=== PATIENT | female | born 1980 | race Two or more races ===

== ENCOUNTER 2019-01-11 02:29 | Emergency (ER) | payer SELFPAY ==
[~2019-01-11] VITALS: Ht 149.9 cm; Wt 54.0 kg
[2019-01-11] MEDS: ALPRAZolam 0.25 MG TAB PO ONE (02:56)
[2019-01-11] MEDS: BACLOFEN 10 MG TAB PO ONE (05:48)
[2019-01-11] MEDS: methylPREDNISolone SOD SUCC 125 MG/2 ML VL IM ONE (05:48)
[2019-01-11 06:15] VITALS: BP 124/84
== END 2019-01-11 06:21 | disposition home or self-care (01) ==
LOC: ER 02:32
DX: M62.838 Other muscle spasm (principal); M54.2 Cervicalgia; R20.2 Paresthesia of skin; G44.209 Tension-type headache, unspecified, not intractable
CPT/HCPCS: 96372; 99283; J2930

== ENCOUNTER 2024-11-19 19:16 | Emergency (ER) | payer MEDICAID ==
[~2024-11-19] VITALS: Ht 149.9 cm; Wt 52.5 kg
[2024-11-19 19:44] VITALS: TEMP 99.3
--- NOTE | 2024-11-19 21:32 | DVH ---
EXAM: XY CHEST TWO VIEWS ROUTINE CLINICAL HISTORY: CHEST WALL PAIN TECHNIQUE: Frontal and lateral views of the chest WID: COMPARISON: None FINDINGS: Lines and tubes: None Chest: The heart size and pulmonary vasculature is within normal limits. No pleural effusion, pneumothorax, or consolidation. The osseous structures are grossly intact. IMPRESSION: No acute cardiopulmonary abnormality.
--- NOTE | 2024-11-19 21:33 | DVH ---
EXAM: XY CERVICAL SPINE 3V INDICATION: NECK PAIN COMPARISON: None TECHNIQUE: 4 views of the cervical spine were obtained. Findings: There is no evidence of an acute fracture, spondylolysis, or spondylolisthesis. The vertebral body heights and disc spaces are well-maintained. Straightening of the cervical lordos is. No blastic or lytic lesions are appreciated. No radiopaque foreign bodies. No superficial soft tissue abnormalities. Impression: 1. No acute osseous abnormality. 2. Straightening of the cervical lordosis which may be positional versus muscle spasm.
[2024-11-19] MEDS ORDERED: CYCL-837 PO (23:29)
[2024-11-19] MEDS ORDERED: ACET500T58 PO (23:29)
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
[2024-11-19 23:35] VITALS: BP 152/98; PULSE 76; RESP 18; O2SAT 100
== END 2024-11-20 | disposition home or self-care (01) ==
LOC: ER 19:16
DX: S16.1XXA Strain of muscle, fascia and tendon at neck level, initial encounter (principal); S20.219A Contusion of unspecified front wall of thorax, initial encounter; V43.52XA Car driver injured in collision with other type car in traffic accident, initial encounter; Y93.89 Activity, other specified; Y92.410 Unspecified street and highway as the place of occurrence of the external cause; Y99.8 Other external cause status
CPT/HCPCS: 71046; 72040

== ENCOUNTER 2025-09-23 22:39 | Emergency (ER) | payer MEDICAID ==
[~2025-09-23] VITALS: Ht 147.3 cm; Wt 60.0 kg
[~2025-09-23 22:39] MED LIST: ACET500T58 PO; CYCL-837 PO
--- NOTE | 2025-09-23 23:56 | ED.PDOC ---
History of Present Illness HPI Comments 44-year-old female who presents with chief complaint of headache. Patient endorses on sudden, unprovoked, and atraumatic onset of intermittent, pounding pain, this morning, that woke her from her sleep and has been, progressively, worsening since. Pain is a 10/10 in severity and having temporary relief with [id number] ibuprofen medication use. She reports associated blurry vision, palpitations, and nausea. No endorsed recent prior ailments, sick contacts, injuries, or pertinent history. Patient denies having any vision or speech changes, facial droop, numbness, tingling, weakness, vomiting or further acute symptoms. REVIEW OF SYSTEMS: General: No fever, no chills, or fatigue HEENT: Blurry vision. No sore throat, no earache, no congestion, no neck pain. Cardiac: Palpitations. No chest pain. Lungs: No shortness of breath, no cough. GI: Nausea, no vomiting, no diarrhea, no constipation, no abdominal pain : No dysuria, frequency, or urgency. No hematuria. Musculoskeletal: No joint pain , no joint swelling, no extremity edema. Skin: No rash, no itching. Neuro: Headache, no dizziness, no weakness (And as sated in HPI) PHYSICAL EXAM: General: Awake, alert and oriented. No acute distress. Skin: Skin in warm, dry and intact. Appropriate color for ethnicity. HEENT: The head is normocephalic and atraumatic. Conjunctivae are clear without exudates or hemorrhage. EOM intact. PERRLA. Sclera is non-icteric. Eyelids are normal in appearance without swelling or lesions. Oral mucosa is pink and mo ist Neck: The neck is supple with normal range of motion. No JVD. Cardiac: Heart rate and rhythm are normal. No murmurs, gallops, or rubs are auscultated. Respiratory: No signs of respiratory distress. Lung sounds are clear in all lobes bilaterally without rales, rhonchi, or wheezes. Abdominal: Abdomen is soft, non-tender without distention, guarding or rigidity. Bowel sounds are present and normoactive in all four quadrants. Extremities: Upper and lower extremities are atraumatic in appearance without d eformity or edema. Neurological: The patient is awake, alert and oriented to person, place, and time with normal speech. Speech is clear. There is no facial asymmetry. Normal gait and strength. Patient is able to stand on each leg, individually, without issue. Psychiatric: Appropriate mood and affect. Good judgement and insight. Chief Complaint: Headache Time Seen by MD: 23:45 Primary Care Provider: UNKNOWN Reviewed Notes: Nurses Notes, Medications, Allergies Allergies: Coded Allergies: NO KNOWN ALLERGIES (Unverified , 01/11/19) Home Meds Active Scripts Ibuprofen (Ibuprofen) 600 Mg Tab, 1 TAB PO TID PRN, #15 TAB Prov:NOEMI MCFADDEN MD 09/24/25 Acetaminophen (Acetaminophen Er) 650 Mg Tab, 650 MG PO TIDPRN PRN, #15 TAB Prov:NOEMI MCFADDEN MD 09/24/25 Cyclobenzaprine Hcl (Cyclobenzaprine Hcl) 5 Mg Tab, 1 TAB PO QHSP, #14 TAB 0 Refills Prov:PRAKASH LEYVA 11/19/24 Acetaminophen (Acetaminophen) 500 Mg Tab, 500 MG PO Q4HPRN, #30 TAB 0 Refills Prov:PRAKASH LEYVA 11/19/24 Information Source: Patient Mode of Arrival: Ambulatory Severity: Moderate Timing: Hours Duration: Intermittent Prehospital treatment: Pain Meds Past Medical History PAST MEDICAL HISTORY: Denies 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 Was a procedure done?: No Differential Dx Considerations may include: Differential diagnoses considered include but are not limited to temporal arteritis, acute angle closure glaucoma, encephalitis, bacterial meningitis, carbon monoxide poisoning, posttraumatic headache, SAH, subdural hematoma, cervical artery dissection, venous sinus thrombosis, CVA, migraine headache, cluster headache, tension headache, TMJ disorder, frontal sinusitis, cervical spondylosis, intracranial mass, pituitary apoplexy. X-Ray, Labs, Meds, VS Vital Signs Date Time Temp Pulse Resp B/P (MAP) Pulse Ox O2 Delivery O2 Flow Rate FiO2 09/24/25 03:24 123/81 09/24/25 02:34 159/91 09/24/25 01:30 101 20 100 Room Air* 0 21 09/24/25 01:30 98.5 101 20 159/91 (113) 100 98.5 11/17/25 22:40 97.8 99 20 171/113 99 97.8 Lab Test 09/24/25 00:00 Range/Units White Blood Count 15.2 H 4.4-10.8 10^3/uL Red Blood Count 4.38 4.0-5.20 10^6/uL Hemoglobin 12.2 12.2-16.2 g/dL Hematocrit 36.4 36.0-46.0 % Mean Corpuscular Volume 83.1 80.0-100.0 fL Mean Corpuscular Hemoglobin 27.8 L 28.0-32.0 pg Mean Corpuscular Hemoglobin Concent 33.5 32.0-36.0 g/dL Red Cell Distribution Width 15.3 H 11.8-14.3 % Platelet Count 345 140-450 10^3/uL Mean Platelet Volume 6.9 6.9-10.8 fL Neutrophils (%) (Auto) 79.2 37.0-80.0 % Lymphocytes (%) (Auto) 14.7 10.0-50.0 % Monocytes (%) (Auto) 4.3 0.0-12.0 % Eosinophils (%) (Auto) 1.4 0.0-7.0 % Basophils (%) (Auto) 0.4 0.0-2.0 % Neutrophils # (Auto) 12.0 H 1.6-8.6 10 ^3/uL Lymphocytes # (Auto) 2.2 0.4-5.4 10 ^3/uL Monocytes # (Auto) 0.7 0-1.3 10 ^3/uL Eosinophils # (Auto) 0.2 0-0.8 10 ^3/uL Basophils # (Auto) 0.1 0-0.2 10 ^3/uL Nucleated Red Blood Cells 0.0 % Sodium Level 139 136-145 mmol/L Potassium Level 3.1 L 3.5-5.1 mmol/L Chloride Level 104 98-107 mmol/L Carbon Dioxide Level 23 20-31 mmol/L Anion Gap 12 5-15 Blood Urea Nitrogen 7 L 9-23 mg/dL Creatinine 0.69 0.550-1.02 mg/dL Glomerular Filtration Rate Calc 110 >90 mL/min BUN/Creatinine Ratio 10.1 10.0-20.0 Serum Glucose 109 H 74-106 mg/dL Calcium Level 9.4 8.7-10.4 mg/dL Magnesium Level 1.8 1.6-2.6 mg/dL Current Medications Medications (Trade) Dose Ordered Sig/Anton Route Start Time Stop Time Status Last Admin Sodium Chloride 1,000 ml @ 1,000 mls/hr Q1H ONCE IV 09/24/25 00:00 09/24/25 00:59 DC 09/24/25 02:35 Ketorolac Tromethamine (Toradol Injection) 30 mg ONCE ONCE IV 09/24/25 00:00 09/24/25 00:01 DC 09/24/25 02:34 Diphenhydramine HCl (Benadryl Injection) 25 mg ONCE ONCE IV 09/24/25 00:00 09/24/25 00:01 DC 09/24/25 02:34 Metoclopramide HCl (Reglan Injection) 10 mg ONCE ONCE IV 09/24/25 00:00 09/24/25 00:01 DC 09/24/25 02:34 Magnesium Sulfate/ Dextrose 100 ml @ 100 mls/hr Q1H IV 09/24/25 00:00 09/24/25 01:59 DC 09/24/25 02:35 Potassium Chloride (Klor-Con Tablet) 40 meq ONCE ONCE PO 09/24/25 01:45 09/24/25 01:46 DC 09/24/25 02:33 Clonidine HCl (Catapres Tablet) 0.2 mg ONCE ONCE PO 09/24/25 01:45 09/24/25 01:46 DC 09/24/25 02:34 Time of 1ST Reevaluation: 00:15 Reevaluation 1ST: Unchanged Patient Education/Counseling: Need For Follow Up Family Education/Counseling: No Family Present SEPSIS Sepsis Screen Date sepsis recognized/suspect: Sep 23, 2025 Time Sepsis recognized/suspect: 2242 Recent Procedure: No On Antibiotic Therapy: No Respiratory Rate >20: No Heart Rate >90: No Temp<36 C (96.8 F) or >38.3 C: No SBP <90 or MAP <65 mmHG: No New Acute Mental Status Change: No Is the patient on CPAP, BIPAP,: No Physician Orders Head Without Contrast (09/23/25 23:55) Vital Signs UPONDC (09/24/25 23:36) Notify Md If Abnormal Vs (09/24/25 02:10) Vital Signs Date Time Temp Pulse Resp B/P (MAP) Pulse Ox O2 Delivery O2 Flow Rate FiO2 09/24/25 03:24 123/81 09/24/25 02:34 159/91 09/24/25 01:30 101 20 100 Room Air* 0 21 09/24/25 01:30 98.5 101 20 159/91 (113) 100 98.5 09/23/25 22:40 97.8 99 20 171/113 99 97.8 Laboratory Tests Test 09/24/25 00:00 White Blood Count 15.2 10^3/uL (4.4-10.8) H Medications Medications Dose Ordered Sig/Anton Route Start Time Stop Time Status Last Admin Dose Admin Clonidine HCl 0.2 mg ONCE ONCE PO 09/24/25 01:45 09/24/25 01:46 DC 09/24/25 02:34 Diphenhydramine HCl 25 mg ONCE ONCE IV 09/24/25 00:00 09/24/25 00:01 DC 09/24/25 02:34 Ketorolac Tromethamine 30 mg ONCE ONCE IV 09/24/25 00:00 09/24/25 00:01 DC 09/24/25 02:34 Magnesium Sulfate/ Dextrose 100 ml @ 100 mls/hr Q1H IV 09/24/25 00:00 09/24/25 01:59 DC 09/24/25 02:35 Metoclopramide HCl 10 mg ONCE ONCE IV 09/24/25 00:00 09/24/25 00:01 DC 09/24/25 02:34 Potassium Chloride 40 meq ONCE ONCE PO 09/24/25 01:45 09/24/25 01:46 DC 09/24/25 02:33 Sodium Chloride 1,000 ml @ 1,000 mls/hr Q1H ONCE IV 09/24/25 00:00 09/24/25 00:59 DC 09/24/25 02:35 Departure 1 Departure Time of Disposition: 03:08 Impression: Primary Impression: Headache Disposition: 01 HOME / SELF CARE / HOMELESS Condition: Stable Additional Instructions: ED DISCHARGE INSTRUCTIONS Instructions: Please read all instructions provided in this packet carefully. Although you have been discharged from the Emergency Department, this does not mean that you have a "clean bill of health". No definitive diagnosis for your symptoms has been made today. It is possible that you are in the process of developing a serious illness. This is why you must return to the ED without fail if any new or worsening symptoms (especially if your symptoms include chest pain, trouble breathing, abdominal pain, fever, headache, confusion, trouble seeing, or trouble walking) It is also very important that you see a primary care provider (PCP) within the next 3-5 days to follow up. If you are unable to get an appointment, return to the ED for re-evaluation. Overview Headaches have many possible causes. Most headaches aren't a sign of a more serious problem, and they will get better on their own. Home treatment may help you feel better faster. The doctor has checked you carefully, but problems can develop later. If you notice any problems or new symptoms, get medical treatment right away. Follow-up care is a torre part of your treatment and safety. Be sure to make and go to all appointments, and call your doctor if you are having problems. It's also a good idea to know your test results and keep a list of the medicines you take. How can you care for yourself at home? Rest in a quiet, dark room until your headache is gone. Close your eyes and try to relax or go to sleep. Don't watch TV or read. Put a cold, moist cloth or cold pack on the painful area for 10 to 20 minutes at a time. Put a thin cloth between the cold pack and your skin. Use a warm, moist towel or a heating pad set on low to relax tight shoulder and neck muscles. Have someone gently massage your neck and shoulders. Take pain medicines exactly as directed. If the doctor gave you a prescription medicine for pain, take it as prescribed. If you are not taking a prescription pain medicine, ask your doctor if you can take an [id number] medicine. Do not ignore new symptoms that occur with a headache, such as a fever, weakness or numbness, vision changes, or confusion. These may be signs of a more serious problem. To prevent headaches Keep a headache diary so you can figure out what triggers your headaches. Avoiding triggers may help you prevent headaches. Record when each headache began, how long it lasted, and what the pain was like (throbbing, aching, stabbing, or dull). Write down any other symptoms you had with the headache, such as nausea, flashing lights or dark spots, or sensitivity to bright light or loud noise. Note if the headache occurred near your period. List anything that might have triggered the headache, such as certain foods (chocolate, cheese, wine) or odors, smoke, bright light, stress, or lack of sleep. Find healthy ways to deal with stress. Headaches are most common during or right after stressful times. Take time to relax before and after you do something that has caused a headache in the past. Try to keep your muscles relaxed by keeping good posture. Check your jaw, face, neck, and shoulder muscles for tension, and try relaxing them. When sitting at a desk, change positions often, and stretch for 30 seconds each hour. Get plenty of sleep and exercise. Eat regularly. Long periods without food can trigger a headache. Limit caffeine by not drinking too much coffee, tea, or soda. But don't quit caffeine suddenly, because that can also give you headaches. Reduce eyestrain from computers by blinking frequently and looking away from the computer screen every so often. Make sure you have proper eyewear and that your monitor is set up properly, about an arm's length away. When should you call for help? Call 911 anytime you think you may need emergency care. For example, call if: You have signs of a stroke. These may include: Sudden numbness, paralysis, or weakness in your face, arm, or leg, especially on only one side of your body. Sudden vision changes. Sudden trouble speaking. Sudden confusion or trouble understanding simple statements. Sudden problems with walking or balance. A sudden, severe headache that is different from past headaches. Call your doctor now or seek immediate medical care if: You have a fever and a stiff neck. You have new nausea and vomiting, or you cannot keep down food or fluids. Your headache gets much worse. Watch closely for changes in your health, and be sure to contact your doctor if: Your headaches get worse, happen more often, or change in some way. You have new symptoms. Your life is disrupted by your headaches. For example, you often miss work, school, or other activities. You do not get better as expected. e-Prescriptions Ibuprofen (Ibuprofen) 600 Mg Tab 1 TAB PO TID PRN, #15 TAB Prov: NOEMI MCFADDEN MD 09/24/25 Acetaminophen (Acetaminophen Er) 650 Mg Tab 650 MG PO TIDPRN PRN, #15 TAB Prov: NOEMI MCFADDEN MD 09/24/25 Discharged With: Self Comments MDM: 44-year-old female presents with new onset severe headache. No focal neurological symptoms. Neuro exam is benign. Pt is nontoxic. VSS. CT head negative for acute process Based on history and normal neurological exam I have low suspicion for intracranial tumor, intracranial bleed, meningitis, temporal arteritis, glaucoma, CO poisoning. Most likely patient has benign headache, recommend rest, hydration, and OTC pain control. Extensive evaluation was performed in attempt to identify or rule out: (See differential diagnosis section) The following tests were ordered, and results were reviewed by me and discussed with patient: (See diagnostic results section) The following test were independently interpreted by me: BMP, CBC I reviewed and agreed with the following test results read by other providers: CT head without contrast Decision regarding hospitalization or escalation of hospital level of care: Risks and benefits of admission for further treatment of patient's condition was considered however due to patient's stable condition patient will be discharged to follow up closely or return to care for worsening of condition or inability to follow up. Critical Care Note Critical Care Time?: No Stability Stability form required: No Heart Score Heart Score: Heart Score Response (Comments) Value History N/A 0 EKG N/A 0 Age N/A 0 Risk Factors N/A 0 Troponin N/A 0 Total 0 I personally scribed for NOEMI MCFADDEN MD (Gelato Fiasco) on 09/23/25 at 23:56. Electronically submitted by Phill Peters ([email or web address]). I personally scribed for NOEMI MCFADDEN MD (Gelato Fiasco) on 09/24/25 at 00:12. Electronically submitted by Phill Peters ([email or web address]). NOEMI MCFADDEN MD Sep 23, 2025 23:56
[2025-09-24 00:16] LABS: Hematocrit 36.4 % (36.0-46.0); Hemoglobin 12.2 g/dL (12.2-16.2); Mean Corpuscular Hemoglobin 27.8 pg (28.0-32.0); Mean Corpuscular Volume 83.1 fL (80.0-100.0); Nucleated Red Blood Cells % 0.0 %
[2025-09-24 00:22] LABS: Chloride 104 mmol/L (98-107); Sodium 139 mmol/L (136-145)
[2025-09-24 00:23] LABS: Anion Gap 12 (5-15); Calcium 9.4 mg/dL (8.7-10.4); Carbon Dioxide 23 mmol/L (20-31)
[2025-09-24 00:28] LABS: BUN/Creatinine Ratio 10.1 (10.0-20.0)
[2025-09-24 00:29] LABS: Magnesium 1.8 mg/dL (1.6-2.6)
[2025-09-24 00:38] LABS: Blood Urea Nitrogen 7 mg/dL (9-23); Glucose 109 mg/dL (74-106); Potassium 3.1 mmol/L (3.5-5.1)
--- NOTE | 2025-09-24 01:05 | DVH ---
MEDICAL RECORDS NUMBER: [id number] PROCEDURE: CT HEAD WITHOUT CONTRAST Date: 09/24/2025 12:37 AM HISTORY: New onset severe headache TECHNIQUE: Contiguous axial images were acquired from the skull base through to the vertex. CONTRAST: None COMPARISON: None RADIATION DOSE INFORMATION: Automated exposure control dose reduction techniques were used. FINDINGS: Ventricles: The ventricular system is normal in size and position. Masses: No mass effect is seen. Hemorrhage: No blood products are identified. Skull: The calvarium is intact. Sinuses: The paranasal sinuses are clear. Mastoids: No fluid is seen in the mastoid air cells. IMPRESSION: 1. No acute process is identified.
[2025-09-24 01:30] VITALS: PULSE 101; RESP 20; TEMP 98.5; O2SAT 100
[2025-09-24] MEDS: POTASSIUM CHL 20 Meq TABLET PO ONE (02:33)
[2025-09-24] MEDS: KETOROLAC TROMETH 30 MG/ML 1ML VIAL IV ONE (02:34)
[2025-09-24] MEDS: diphenhydrAMINE HCL 50 MG/1 ML VL IV ONE (02:34)
[2025-09-24] MEDS: METOCLOPRAMIDE HCL 5MG/ml INJ 2ml VIAL IV ONE (02:34)
[2025-09-24] MEDS: MAGNESIUM SULFATE 1GM/100ML 100 ML IV SCH (02:34)
[2025-09-24] MEDS: SODIUM CHLORIDE 0.9% 1,000 ML IV ONE (02:35)
[2025-09-24] MEDS ORDERED: IBUP-1454 PO (03:10)
[2025-09-24] MEDS ORDERED: ACET650T12 PO (03:10)
[2025-09-24 05:30] VITALS: BP 95/52; PULSE 71; RESP 13; O2SAT 100
== END 2025-09-24 06:05 | disposition home or self-care (01) ==
LOC: ER 22:39
DX: R51.9 Headache, unspecified (principal); Z79.899 Other long term (current) drug therapy
CPT/HCPCS: 36415; 70450; 80048; 83735; 85025; 96365; 96375; 99285; J1200; J1885; J2765; J3475